=== PATIENT | male | born 1950 | race Caucasian/White ===

== ENCOUNTER → 2016-11-18 | Outpatient (CLI) | payer BC ==
--- NOTE | 2016-11-18 13:08 | DIAGNOSTIC IMAGING REPORT ---
C-SPINE ROUTINE 4 OR 5 VIEWS CLINICAL HISTORY: CERVICALGIA COMPARISON STUDY: No previous studies for comparison. FINDINGS: There is reversal of the normal cervical lordosis. There is marked disc space narrowing at C6-C7 with osteophytosis. There is moderate disc space narrowing at C5-C6. Moderate multilevel facet arthrosis is present. No fractures identified. IMPRESSION: 1. Severe disc space narrowing, osteophytosis and facet arthrosis at C6-C7 with moderate degenerative disc disease and facet arthrosis at several additional cervical levels. 2. Reversal of normal cervical lordosis. 3. No fracture. Electronically signed by: Nolberto Rodriguez M.D. 11/18/2016 1:07 PM Dictated Date/Time: 11/18/2016 1:06 PM
--- NOTE | 2016-11-18 13:27 | DIAGNOSTIC IMAGING REPORT ---
THORACIC SPINE 3 VIEWS HISTORY: Back pain. DORSALGIA COMPARISON: None. FINDINGS: There is no fracture. No subluxation. Minimal disc space narrowing and endplate osteophytes within the upper to mid thoracic spine. Paraspinal soft tissues are unremarkable. Mild levoscoliosis within the upper thoracic spine. IMPRESSION: No fracture or subluxation within the thoracic spine. Electronically signed by: Randall Ace M.D. 11/18/2016 1:26 PM Dictated Date/Time: 11/18/2016 1:24 PM
== END | disposition home or self-care (01) ==
LOC: C.RAD 12:15
PROVIDERS: ATTEND Physician Assistant
DX: M54.2 Cervicalgia (principal)

== ENCOUNTER 2017-03-25 09:59 | Emergency (ER) | payer BC ==
[~2017-03-25] VITALS: Ht 188 cm; Wt 100.6 kg
[2017-03-25] MEDS ORDERED: LABETALOL HCL IV 5 MG/ML 20ML IV STA (10:13)
[2017-03-25 10:15] VITALS: TEMP 37; Ht 188 cm; Wt 100.6 kg
[2017-03-25 10:20] VITALS: O2SAT 99
--- NOTE | 2017-03-25 10:23 | EMERGENCY ROOM VISIT NOTE ---
History Report prepared by Reinaldo: Leigh Lebdetter Under the Supervision of: Dr. Julio Wheat M.D. First contact with patient: 10:10 Chief Complaint: CARDIAC ASSESSMENT Stated Complaint: HIGH BLOOD PRESSURE 191/121, IRREGULAR HEART BEAT History of Present Illness The patient is a 66 year old male who presents to the Emergency Room with complaints of a persistent irregular heartbeat that began a few days ago. The patient reports a history of atrial fibrillation and tachycardia. He states that two years ago he had an ablation that alleviated his atrial fibrillation and states that a second ablation alleviated his tachycardia. The patient states that during his second ablation he had a heart monitor implanted. He states that he is from the [facility], noting that he follows with cardiology there. The patient states that a few days ago he was called and told that he needs to come down to their office for a nuclear stress test, echocardiogram and blood work. He states that he put off the appointment until tomorrow. The patient states that he woke this morning with a blood pressure of 191/121 mmHg. He additionally reports a headache and feeling "puffy." The patient states that he has noticed an irregular heartbeat. He states that he was feeling confused this morning noting that he could not remember his zipcode that he has had for 30 years. The patient reports slight chest pain that he describes as an ache. The patient denies any shortness of breath. He denies being on any blood pressure medications. Source of History: patient Onset: few days ago Position: other (global) Quality: other (irregular heartbeat) Timing: other (persistent) Associated Symptoms: + headache, + chest pain, No SOB Note: Associated Symptoms: Elevated blood pressure, feeling puffy, confusion Review of Systems See HPI for pertinent positives & negatives. A total of 10 systems reviewed and were otherwise negative. Past Medical & Surgical Medical Problems: (1) Atrial fibrillation Family History No pertinent family history stated. Social History Marital Status: Housing Status: lives with significant other Occupation Status: employed Current/Historical Medications Scheduled Carvedilol (Coreg), 1 TAB PO BID Lifitegrast (Xiidra), 1 DROP OPB UD Multiple Vitamin (Multi-Day Vitamins), 1 TAB PO DAILY Scheduled PRN Aspirin (Aspirin Ec), 325 MG PO UD PRN for Pain Allergies Coded Allergies: No Known Allergies (Unverified , 03/25/17) Physical Exam Vital Signs Date Time Temp Pulse Resp B/P (MAP) Pulse Ox O2 Delivery O2 Flow Rate FiO2 03/25/17 12:21 68 18 155/90 98 Room Air 03/25/17 11:50 69 16 137/80 95 Room Air 03/25/17 10:52 68 18 151/93 95 Room Air 03/25/17 10:35 66 18 146/94 96 Room Air 03/25/17 10:20 99 Room Air 03/25/17 10:15 37.0 77 18 179/123 98 Room Air 03/25/17 10:14 75 Physical Exam GENERAL: Patient is in no acute distress. HEENT: No acute trauma, normocephalic atraumatic, mucous membranes moist, no nasal congestion, no scleral icterus. NECK: No stridor, no adenopathy, no meningismus, trachea is midline. LUNGS: Clear to auscultation bilaterally, no wheeze, no rhonchi, breath sounds equal. HEART: Without murmurs gallops or rubs, regular rate and rhythm. ABDOMEN: Soft, nontender, bowel sounds positive, no hernias, no peritonitis. EXTREMITIES: No cyanosis or edema, full range of motion of all the joints without pain or difficulty, no signs for acute trauma. NEUROLOGIC: Oriented x 3, no acute motor or sensory deficits, no focal weakness. SKIN: No rash, no jaundice, no diaphoresis. Medical Decision & Procedures ER Provider Diagnostic Interpretation: X-ray results as stated below per interpretation by me and the radiologist: CHEST ONE VIEW PORTABLE CLINICAL HISTORY: 66 years-old Male presenting with CHEST PAIN, high blood pressure. TECHNIQUE: Portable upright AP view of the chest was obtained. COMPARISON: None. FINDINGS: External device projects over the cardiac silhouette. Cardiomediastinal silhouette otherwise normal. Lungs and pleural spaces clear. Osseous structures normal. Upper abdomen normal. IMPRESSION: 1. No acute cardiopulmonary disease. Electronically signed by: Jaren Trujillo M.D. 03/25/2017 10:29 AM Dictated Date/Time: 03/25/2017 10:28 AM Laboratory Results 03/25/17 10:20 03/25/17 10:20 Test 03/25/17 10:20 Red Blood Count 4.80 M/uL (4.7-6.1) Mean Corpuscular Volume 90.2 fL (80-100) Mean Corpuscular Hemoglobin 31.0 pg (25-34) Mean Corpuscular Hemoglobin Concent 34.4 g/dl (32-36) RDW Standard Deviation 42.4 fL (36.4-46.3) RDW Coefficient of Variation 13.0 % (11.5-14.5) Mean Platelet Volume 10.6 fL (7.4-10.4) Prothrombin Time 10.4 SECONDS (9.0-12.0) Prothromb Time International Ratio 1.0 (0.9-1.1) Activated Partial Thromboplast Time 25.3 SECONDS (21.0-31.0) Partial Thromboplastin Ratio 1.0 Anion Gap 6.0 mmol/L (3-11) Est Creatinine Clear Calc Drug Dose 100.6 ml/min Estimated GFR () 98.9 Estimated GFR (Non- 85.3 BUN/Creatinine Ratio 16.7 (10-20) Calcium Level 9.0 mg/dl (8.5-10.1) Total Bilirubin 0.6 mg/dl (0.2-1) Aspartate Amino Transf (AST/SGOT) 21 U/L (15-37) Alanine Aminotransferase (ALT/SGPT) 43 U/L (12-78) Alkaline Phosphatase 43 U/L (45-117) Total Creatine Kinase 75 U/L (39-308) Creatine Kinase MB 2.0 ng/ml (0.5-3.6) Creatine Kinase MB Ratio 2.7 (0-3.0) Troponin I < 0.015 ng/ml (0-0.045) Total Protein 7.5 gm/dl (6.4-8.2) Albumin 4.2 gm/dl (3.4-5.0) Globulin 3.3 gm/dl (2.5-4.0) Albumin/Globulin Ratio 1.3 (0.9-2) Laboratory results reviewed by me. Medications Administered Medications (Trade) Dose Ordered Sig/Nirmal Route Start Time Stop Time Status Last Admin Dose Admin Labetalol HCl (Normodyne IV) 20 mg NOW STAT IV 03/25/17 10:13 03/25/17 10:15 DC 03/25/17 10:24 20 MG Carvedilol (Coreg Tab) 6.25 mg NOW STAT PO 03/25/17 11:44 03/25/17 11:45 DC 03/25/17 12:20 6.25 MG ECG Indication: chest pain, SOB/dyspnea Rate (beats per minute): 76 Rhythm: normal sinus Findings: no acute ischemic change, no ectopy ED Course 1012: The patient was evaluated in room A10. A complete history and physical exam was performed. 1013: Ordered Labetalol HCl 20 mg IV. 1119: I reevaluated the patient and he is resting comfortably. I discussed the test results with him. He states that he does not wish to stay in the hospital for further treatment and evaluation. His fish cleaner machine tender from [place] will be consulted. 1141: I discussed the patients case with Dr. Monaco, Cardiology in [place]. He states that the patient should be started on Co-reg and that they will see the patient tomorrow. 1144: Ordered Coreg Tab 6.25 mg PO. 1219: I reevaluated the patient and he is resting comfortably. I updated him on the treatment plan. He will be discharged shortly. Medical Decision The patient is a 66 year old male who presents to the ED with complaints of irregular heartbeat. Differential diagnoses considered include uncontrolled hypertension, cardiac ischemia, anemia, renal failure, electrolyte imbalance, dysrhythmia. There is no leukocytosis or concerning anemia. No significant electrolyte abnormality or kidney failure. There is no hepatitis or coagulopathy. Chest film does not show pneumonia or CHF. EKG shows a normal sinus rhythm, no acute ischemia. Cardiac enzyme testing times one is not consistent with acute cardiac injury. The patient presents with a high blood pressure and some chest tightness. He has felt that his heart has been irregular. The patient was given IV labetalol, he feels improved, his blood pressure is markedly improved. I discussed this case with the fish cleaner machine tender who follows him and [place]. The patient was felt stable for discharge with follow-up with them tomorrow as scheduled for stress testing and a cardiac echo. He is being placed on Coreg orally for now to control the blood pressure and heart rate. He was given 6.25 mg orally while in the ED. The patient was encouraged to return to this ER or the nearest ER for any worsening symptoms or complaints. Medication Reconcilliation Current Medication List: was personally reviewed by me Blood Pressure Screening Patient's blood pressure: Elevated blood pressure Blood pressure disposition: Referred to PCP Consults Time Called: 1122 Consulting Physician: Dr. Monaco, Cardiology in [place] Returned Call: 1141 I discussed the patients case with Dr. Monaco, Cardiology in [place]. He states that the patient should be started on Co-reg and that they will see the patient tomorrow. Impression Primary Impression: Precordial chest pain Additional Impression: Hypertension Scribe Attestation The scribe's documentation has been prepared under my direction and personally reviewed by me in its entirety. I confirm that the note above accurately reflects all work, treatment, procedures, and medical decision making performed by me. Departure Information Dispostion Home / Self-Care Prescriptions Carvedilol (COREG) 6.25 Mg Tab 1 TAB PO BID for 15 Days, #30 TAB 5 Refills Prov: Julio Wheat M.D. 03/25/17 Referrals SARAH RICK M.D. (PCP) Forms IMPORTANT VISIT INFORMATION Patient Instructions My [facility] Additional Instructions coreg 2x per day for blood pressure control return to the nearest ER for worsening symptoms or chest pain see your cardiology group tomorrow as scheduled lab testing today was all ok Problem Qualifiers
--- NOTE | 2017-03-25 10:30 | DIAGNOSTIC IMAGING REPORT ---
CHEST ONE VIEW PORTABLE CLINICAL HISTORY: 66 years-old Male presenting with CHEST PAIN, high blood pressure. TECHNIQUE: Portable upright AP view of the chest was obtained. COMPARISON: None. FINDINGS: External device projects over the cardiac silhouette. Cardiomediastinal silhouette otherwise normal. Lungs and pleural spaces clear. Osseous structures normal. Upper abdomen normal. IMPRESSION: 1. No acute cardiopulmonary disease. Electronically signed by: Jaren Trujillo M.D. 03/25/2017 10:29 AM Dictated Date/Time: 03/25/2017 10:28 AM
[2017-03-25 10:34] LABS: HEMATOCRIT 43.3 % (42-52); MEAN CELL VOLUME 90.2 fL (80-100); MEAN CORPUSCULAR HGB CONC 34.4 g/dl (32-36); MEAN PLATELET VOLUME 10.6 fL (7.4-10.4); PLATELET COUNT 197 K/uL (130-400); WHITE BLOOD COUNT 5.28 K/uL (4.8-10.8)
[2017-03-25 10:44] LABS: PROTHROMBIN TIME (PATIENT) 10.4 SECONDS (9.0-12.0)
[2017-03-25 10:51] LABS: ALT/SGPT 43 U/L (12-78); BLOOD UREA NITROGEN 16 mg/dl (7-18); BUN/CREATININE RATIO 16.7 (10-20); CARBON DIOXIDE 28 mmol/L (21-32); CHLORIDE 107 mmol/L (98-107); CREATININE 0.94 mg/dl (0.60-1.40); GLUCOSE 81 mg/dl (70-99); POTASSIUM 4.1 mmol/L (3.5-5.1); SODIUM 141 mmol/L (136-145)
[2017-03-25 10:56] LABS: ALB/GLOB RATIO 1.3 (0.9-2); ALKALINE PHOSPHATASE 43 U/L (45-117); AST/SGOT 21 U/L (15-37); CKMB/CK RATIO 2.7 (0-3.0)
[2017-03-25] MEDS ORDERED: MULT-225 PO (10:58)
[2017-03-25] MEDS ORDERED: LIFI5DRO OPB (10:58)
[2017-03-25] MEDS ORDERED: ASPI325T39 PO (10:58)
[2017-03-25] MEDS ORDERED: CARVEDILOL 6.25 MG TAB PO STA (11:44)
[2017-03-25 12:21] VITALS: BP 155/90; PULSE 68; O2SAT 98
[2017-03-25] MEDS ORDERED: CARV6.252 PO (12:22)
== END 2017-03-25 12:34 | disposition home or self-care (01) ==
LOC: C.EDB 10:02 → C.EDA 12:34
DX: R07.2 Precordial pain (principal); I10 Essential (primary) hypertension; I48.91 Unspecified atrial fibrillation; Z79.899 Other long term (current) drug therapy

== ENCOUNTER → 2017-04-22 | Outpatient (CLI) | payer BC ==
[~2017-04-22] MED LIST: ASPI325T39 PO; CARV6.252 PO; LIFI5DRO OPB; MULT-225 PO
[2017-04-22 20:57] LABS: BASO % 0.3 %; BASO ABS # 0.02 K/uL (0-0.2); EOS ABS # 0.14 K/uL (0-0.5); HEMATOCRIT 38.5 % (42-52); HEMOGLOBIN 13.5 g/dL (14.0-18.0); IG# 0.02 K/uL (0.00-0.02); LYMPH % 35.2 %; LYMPH ABS # 2.45 K/uL (1.2-3.4); MEAN CELL VOLUME 88.7 fL (80-100); MEAN CORPUSCULAR HEMOGLOBIN 31.1 pg (25-34); MEAN CORPUSCULAR HGB CONC 35.1 g/dl (32-36); MEAN PLATELET VOLUME 10.5 fL (7.4-10.4); MONO ABS # 0.42 K/uL (0.11-0.59); NEUT % 56.2 %; NEUT ABS # 3.92 K/uL (1.4-6.5); PLATELET COUNT 203 K/uL (130-400); RED CELL DISTRIBUTION WIDTH CV 12.6 % (11.5-14.5); RED CELL DISTRIBUTION WIDTH SD 40.8 fL (36.4-46.3); WHITE BLOOD COUNT 6.97 K/uL (4.8-10.8)
[2017-04-22 21:17] LABS: BLOOD UREA NITROGEN 20 mg/dl (7-18); CALCIUM 9.1 mg/dl (8.5-10.1); CARBON DIOXIDE 28 mmol/L (21-32); CREATININE 0.92 mg/dl (0.60-1.40); GLUCOSE 115 mg/dl (70-99); POTASSIUM 3.9 mmol/L (3.5-5.1); SODIUM 140 mmol/L (136-145)
== END | disposition home or self-care (01) ==
LOC: C.LAB 20:32
PROVIDERS: ATTEND Internal Medicine
DX: Z01.812 Encounter for preprocedural laboratory examination (principal); R00.2 Palpitations